=== PATIENT | female | born 1970 | race Caucasian/White ===

== ENCOUNTER 2017-08-25 23:22 | Emergency (ER) | payer MEDICAID ==
[~2017-08-25] VITALS: Ht 170.2 cm; Wt 83.3 kg
[2017-08-25 23:23] VITALS: BP 154/99
[2017-08-26] MEDS ORDERED: SODIUM CHLORIDE FLUSH 10ML SYR IVF ONE
[2017-08-26] MEDS ORDERED: LIDOCAINE 1%, 20ML SQ ONE
[2017-08-26] MEDS ORDERED: AMPICILLIN/SULBACTAM 3 GM in SODIUM CHLORIDE 0.9% 100 ML IVPB ONE
[2017-08-26] MEDS ORDERED: LIDOCAINE 1%, 20ML ONE (00:03)
[2017-08-26] MEDS ORDERED: DIPH,PERTUSS(ACELL),TET VAC/PF 0.5 ML IM-VACC ONE ×2 (00:13)
[2017-08-26] MEDS ORDERED: HYDROcodone/APAP 5/325 TABLET ONE (00:55)
[2017-08-26] MEDS ORDERED: HYDROcodone/APAP 5/325 TABLET PO ONE (01:00)
== END 2017-08-26 01:04 | disposition home or self-care (01) ==
LOC: ED 23:59
DX: S51.052A Open bite, left elbow, initial encounter (principal); L03.90 Cellulitis, unspecified; I10 Essential (primary) hypertension; W55.01XA Bitten by cat, initial encounter; Y93.89 Activity, other specified; Y99.8 Other external cause status; Y92.89 Other specified places as the place of occurrence of the external cause
CPT/HCPCS: 10060; 90471; 90715; 96365; 99284; J0295

== ENCOUNTER 2020-07-27 02:53 | Emergency (ER) | payer MEDICAID ==
[~2020-07-27] VITALS: Ht 170.2 cm; Wt 100.0 kg
--- NOTE | 2020-07-27 03:07 | NUR ---
ARIVES A/0X3, DOES NOT REMEMBER PRIOR TO FALL, POS DRINKING TONIGHT, HX SEIZURE DISORDER. NO MID LINE C SPINE TENDERNESS, SLURRED SPEACH, NO ORAL TRAUMA.
--- NOTE | 2020-07-27 03:20 | NUR ---
late entry d/t pt care: report received from radha naranjo, pt resting on [facility], states "my head hurts a bit" pt also states her TdAP is up to date, reports that she got it approx. 3-4 years ago with a cat bite. pt declines tdap at this visit. wctm.
[2020-07-27] MEDS ORDERED: DIPH,PERTUSS(ACELL),TET VAC/PF 0.5 ML IM-VACC ONE ×2 (03:21→03:30)
[2020-07-27 03:47] LABS: BASOPHILS % (AUTO) 1 % (0-1); EOSINOPHILS % (AUTO) 1 % (1-7); LYMPHOCYTES % (AUTO) 38 % (22-44); MEAN CORPUSCULAR HEMOGLOBIN 24.6 pg (27.0-34.8); MEAN CORPUSCULAR HGB CONC 31.5 g/dL (32.4-35.8); MEAN PLATELET VOLUME 7.6 fL (7.4-10.4); MONOCYTES % (AUTO) 8 % (2-9); NEUTROPHILS % (AUTO) 52 % (42-75); PLATELET COUNT 333 x10^3/uL (130-400)
[2020-07-27 03:49] LABS: ALANINE AMINOTRANSFERASE 25 U/L (12-78); ALBUMIN 3.3 g/dL (3.4-5.0); ANION GAP 7 mmol/L (5-15); CHLORIDE 108 mmol/L (98-107); CREATININE 0.77 mg/dL (0.55-1.02); MD NO
[2020-07-27 03:53] LABS: ALKALINE PHOSPHATASE 80 U/L (45-117); BILIRUBIN,TOTAL 0.2 mg/dL (0.2-1.0); TOTAL PROTEIN 7.1 g/dL (6.4-8.2)
--- NOTE | 2020-07-27 03:58 | NUR ---
pt back from ct, nad, ambulated to and from restroom with a smooth and steady gait, denies additional needs at this time. pt head lac irrigated. WCTM. waiting for test results.
[2020-07-27 05:02] VITALS: BP 119/73
--- NOTE | 2020-07-27 05:02 | NUR ---
Patient given discharge instructions and they have confirmed that they understand the instructions. Patient ambulatory with steady gait. NAD, DENIES ADDITIONAL QUESTIONS OR NEEDS AT THIS TIME. NO PERSONAL BELONGINGS LEFT IN ROOM AT TIME OF DC.
== END 2020-07-27 05:21 | disposition home or self-care (01) ==
LOC: ED 05:15
DX: S06.0X0A Concussion without loss of consciousness, initial encounter (principal); S00.01XA Abrasion of scalp, initial encounter; F10.129 Alcohol abuse with intoxication, unspecified; I11.9 Hypertensive heart disease without heart failure; W01.0XXA Fall on same level from slipping, tripping and stumbling without subsequent striking against object, initial encounter; Y93.89 Activity, other specified; Y92.098 Other place in other non-institutional residence as the place of occurrence of the external cause; Y99.8 Other external cause status; Y90.9 Presence of alcohol in blood, level not specified
CPT/HCPCS: 36415; 70450; 72125; 80053; 80307; 85025; 93005; 99285

== ENCOUNTER 2021-05-27 14:47 | Outpatient (CLI) | payer MEDICAID ==
[2021-05-27] MEDS ORDERED: FLUO40CA2 PO (15:31)
[2021-05-27] MEDS ORDERED: HYDR-826 PO (15:31)
[2021-05-27] MEDS ORDERED: PROP10TA51 PO (15:31)
[2021-05-27] MEDS ORDERED: GABA300C PO (15:31)
[2021-05-27] MEDS ORDERED: DEXT30CA4 PO (15:31)
[2021-05-27] MEDS ORDERED: PROP10TA16 PO (15:31)
== END 2021-05-27 23:59 | disposition home or self-care (01) ==
LOC: STAR 14:47
PROVIDERS: ATTEND Obstetrics & Gynecology
DX: Z02.9 Encounter for administrative examinations, unspecified (principal)

== ENCOUNTER 2021-05-29 13:35 | Day surgery (SDC) | payer MEDICAID ==
[~2021-05-29] VITALS: Ht 170.2 cm; Wt 96.6 kg
[~2021-05-29 13:35] MED LIST: DEXT30CA4 PO; FLUO40CA2 PO; GABA300C PO; HYDR-826 PO; PROP10TA16 PO; PROP10TA51 PO
[2021-05-29 13:52] VITALS: BP 126/83
[2021-05-29] MEDS ORDERED: CHLORHEXIDINE 15 ML UDC ONE (13:55)
[2021-05-29] MEDS ORDERED: CHLORHEXIDINE 15 ML UDC PO ONE (14:00)
[2021-05-29] MEDS ORDERED: LACTATED RINGERS 1,000 ML IV SCH (14:00)
[2021-05-29] MEDS ORDERED: IBUP-1223 PO (14:22)
[2021-05-29] MEDS ORDERED: OXYC1TAB12 PO (14:22)
[2021-05-29] MEDS ORDERED: SILVER NITRATE STICK TP ONE (14:26)
[2021-05-29] MEDS ORDERED: PROMETHAZINE 25 MG/ML, 1ML IVPush PRN (14:30)
[2021-05-29] MEDS ORDERED: ACETAMINOPHEN 325 MG TABLET PO PRN (14:30)
[2021-05-29] MEDS ORDERED: MEPERIDINE/PF 25MG/0.5ML IVPush PRN (14:30)
[2021-05-29] MEDS ORDERED: LABETALOL 5MG/ML, 20ML IV PRN (14:30)
[2021-05-29] MEDS ORDERED: HYDROmorphone 1 MG/ML, 1ML INJ IVPush PRN (14:30)
[2021-05-29] MEDS ORDERED: OXYcodone 5 MG/5 ML ORAL.SOL UDC PO PRN (14:30)
[2021-05-29] MEDS ORDERED: METHOCARBAMOL 1,000 MG in DEXTROSE 5% 100 ML IV PRN (14:30)
[2021-05-29] MEDS ORDERED: hydrALAzine 20 MG/ML, 1ML IV PRN (14:30)
[2021-05-29] MEDS ORDERED: LORazepam 2 MG/ML, 1ML IVPush PRN (14:30)
[2021-05-29] MEDS ORDERED: EPHEDRINE 50 MG/ML, 1ML IVPush PRN (14:30)
[2021-05-29] MEDS ORDERED: ONDANSETRON 2MG/ML, 2ML IVPush PRN ×2 (14:30→16:30)
[2021-05-29] MEDS ORDERED: KETOROLAC 30 MG/1 ML ONE (14:38)
[2021-05-29] MEDS ORDERED: LIDOCAINE 1%, 20ML ONE (14:38)
[2021-05-29] MEDS ORDERED: DEXAMETHASONE 4 MG/ML, 1ML ONE (14:38)
[2021-05-29] MEDS ORDERED: FENTANYL PF 250 MCG/5ML ONE (14:45)
[2021-05-29] MEDS ORDERED: PROPOFOL 50 ML ONE (14:48)
[2021-05-29] MEDS ORDERED: HYDROmorphone 2 MG/ML, 1ML ONE (15:30)
[2021-05-29] MEDS ORDERED: PROMETHAZINE 25 MG/ML, 1ML ONE (15:30)
[2021-05-29] MEDS ORDERED: OXYcodone/APAP 5/325MG TABLET PO PRN (16:30)
[2021-05-29] MEDS ORDERED: IBUPROFEN 600 MG TABLET PO PRN (16:30)
[2021-05-29] MEDS ORDERED: OXYcodone/APAP 5/325MG TABLET ONE (16:33)
== END 2021-05-29 18:10 | disposition home or self-care (01) ==
LOC: OR 13:35
PROVIDERS: ATTEND Obstetrics & Gynecology
DX: N93.9 Abnormal uterine and vaginal bleeding, unspecified (principal); I10 Essential (primary) hypertension; G43.909 Migraine, unspecified, not intractable, without status migrainosus; F17.210 Nicotine dependence, cigarettes, uncomplicated; Z79.899 Other long term (current) drug therapy; Z88.8 Allergy status to other drugs, medicaments and biological substances; Z80.9 Family history of malignant neoplasm, unspecified; Z82.3 Family history of stroke
CPT/HCPCS: 58120; 58563; 81025; 88305; J1100; J1170; J1885; J2550; J2704; J2800; J3010; J7120